=== PATIENT | female | born 1975 | race Caucasian/White ===

== ENCOUNTER 2022-08-04 09:57 | Outpatient (CLI) | payer OTHER, SELFPAY | END 2022-08-04 09:58 | disposition home or self-care (01) | LOC: NFLDREF 08-06 20:11 | PROVIDERS: PCP Physician Assistant Medical; Referring Provider Physician Assistant Medical; Visit Provider Physician Assistant Medical | DX: Z00.00 Encounter for general adult medical examination without abnormal findings (principal); E03.9 Hypothyroidism, unspecified; F41.9 Anxiety disorder, unspecified; F32.A Depression, unspecified; Z13.6 Encounter for screening for cardiovascular disorders | CPT/HCPCS: 80053; 80061; 84443 ==

== ENCOUNTER 2023-01-24 10:01 | Outpatient (CLI) | payer OTHER, SELFPAY | END 2023-01-24 10:02 | disposition home or self-care (01) | PROVIDERS: PCP Physician Assistant Medical; Visit Provider Obstetrics & Gynecology | DX: Z80.3 Family history of malignant neoplasm of breast (principal) | CPT/HCPCS: 81162; 81307; 81321; 81323; 81351; 81404; 81405; 81406; 81408; 81479 ==

== ENCOUNTER 2023-12-03 13:23 | Outpatient (CLI) | payer OTHER, SELFPAY | END 2023-12-03 13:24 | disposition home or self-care (01) | PROVIDERS: PCP Physician Assistant Medical; Visit Provider Physician Assistant Medical | DX: E03.9 Hypothyroidism, unspecified (principal); M25.521 Pain in right elbow; Z13.220 Encounter for screening for lipoid disorders; Z13.228 Encounter for screening for other metabolic disorders; Z13.21 Encounter for screening for nutritional disorder | CPT/HCPCS: 80053; 80061; 82306; 84443; 86140; 86200; 86431 ==